=== PATIENT | female | born 1970 | race Two or more races ===

== ENCOUNTER 2025-01-24 03:05 | Emergency (ER) | payer MEDICAID, SELFPAY ==
[2025-01-24 03:08] VITALS: BMI 31.6
[2025-01-24 03:19] VITALS: BP 151/83; PULSE 89; RESP 18; TEMP 36.5; O2SAT 96
[2025-01-24] MEDS: KETOROLAC INJ 60 MG/2 ML VIAL IM (03:33)
--- NOTE | 2025-01-24 03:35 | PD.EDSKIN ---
ED Skin Abcess FB-RME/HPI General Chief complaint: Skin/Abscess/Foreign Body Stated complaint: LESIONS ON ARMS Time Seen by Provider: 01/24/25 03:22 Arrival date/time: 01/24/25 03:05 54F with no significant PMH presents to ED with 3 months of itchy/painful rashes on bilateral arms. Patient has seen client service associate who did biopsy and said it was unspecified dermatitis. Limitations: no limitations Related Data Home Medications ?Medication ?Instructions ?Recorded ?Confirmed lisinopril 20 mg tablet 20 mg PO QDAY #0 tabs 06/14/16 08/09/22 gabapentin 600 mg tablet 1 tab PO TID 01/20/22 08/09/22 hydrocodone 10 mg-acetaminophen 1 tab PO Q6H PRN Pain 08/09/22 08/09/22 325 mg tablet Held on 08/09/22. Instructions: Resume on 08/10/22. Previous Rx's ?Medication ?Instructions ?Recorded pantoprazole 40 mg tablet,delayed 40 mg PO BID #180 tabs 01/20/22 release (Protonix) Allergies Allergy/AdvReac Type Severity Reaction Status Date / Time Latex, Natural Rubber Allergy Severe Rash Verified 08/09/22 08:47 fentanyl Allergy Mild Hypotension Verified 08/09/22 08:47 morphine Allergy Mild itching Verified 08/09/22 08:47 sulfamethoxazole Allergy Mild Rash Verified 08/09/22 08:47 trimethoprim Allergy Mild Rash Verified 08/09/22 08:47 Review of Systems Review of Systems Systems Reviewed: All systems reviewed, normal except as documented Constitutional Constitutional: Reports system reviewed and no additional complaints, except as documented, Denies fever(s) and Denies headache(s) ENT Ears, Nose, Mouth, and Throat: Denies disequilibrium and Denies headache(s) Cardiovascular Cardiovascular: Reports system reviewed and no additional complaints, except as documented, Denies chest pain and Denies dyspnea Respiratory Respiratory: Reports system reviewed and no additional complaints, except as documented, Denies cough and Denies dyspnea Gastrointestinal Gastrointestinal: Reports system reviewed and no additional complaints, except as documented, Denies abdominal pain, Denies nausea and Denies vomiting Integumentary/Breasts Skin/Breast: Reports as per HPI, Reports pruritus, Reports rash and Reports skin pain Neurologic Neurologic: Reports system reviewed and no additional complaints, except as documented, Denies confusion, Denies disequilibrium and Denies headache(s) Psychiatric Psychiatric: Denies confusion Past Medical History Past Medical History NEUROLOGIC: Negative Neurological Disorders or Seizures CARDIAC: Positive Cardiac Disorders, Hypercholesterolemia and Hypertension; Negative Congestive Heart Failure RESPIRATORY: Negative Chronic Obstructive Pulmonary Disease (COPD), Asthma or Sleep Apnea GASTROINTESTINAL: Negative Gastrointestinal Disorders GENITOURINARY: Negative Genitourinary Disorders or Renal Disease MUSCULOSKELETAL: Positive Musculoskeletal Disorders and Arthritis ENDOCRINE: Negative Endocrine Disorders, Diabetes Mellitus Type 1 or Diabetes Mellitus Type 2 HEMATOLOGIC: Negative Blood Disorders PSYCHO/SOCIAL: Negative Depression or Anxiety OTHER HISTORY: Positive Chicken Pox; Negative Autoimmune Disease, Blood Transfusions, Blood Transfusion Reaction or Anesthesia Reactions Surgical History SURGICAL: Positive Abdominal Surgery (gastric sleeve, tummy tuck), Hysterectomy and Section (x3); Negative Cardiac Surgery, Endocrine Surgery, Ear Surgery, Nephrectomy, Joint Replacement or Neurologic Surgery Social History SMOKING STATUS: Never smoker ED Exam General Limitations: Present no limitations General appearance: Present alert and in no apparent distress Head Head exam: Present atraumatic Eye Eye exam: Present normal appearance, PERRL and EOMI ENT ENT exam: Present normal exam, normal oropharynx and mucous membranes moist Neck Neck exam: Present normal inspection, full ROM and trachea midline Chest Chest inspection: Present normal inspection and symmetric chest wall rise Respiratory Respiratory exam: Present normal lung sounds bilaterally Cardiovascular Cardiovascular exam: Present regular rate, normal rhythm and normal heart sounds Abdominal Exam Abdominal exam: Present soft and normal bowel sounds Extremities Exam Extremities exam: Present normal inspection and full ROM Back Exam Back exam: Present normal inspection and full ROM Neurological Exam Neurological exam: Present alert, oriented X3 and CN II-XII intact Psychiatric Psychiatric exam: Present normal affect and normal mood Skin Skin exam: Present warm, dry, intact, normal color and rash Course Quality Measures none Orders Category Date Time Status DiphenhydrAMINE [Benadryl] Med 01/24/25 03:22 Discontinued 50 mg PO X1 ONE Ketorolac Inj [Toradol Inj] Med 01/24/25 03:22 Discontinued 60 mg IM X1 ONE Vital Signs Vital signs: Vital Signs Temperature 97.7 F 01/24/25 03:19 Pulse Rate 89 01/24/25 03:19 Respiratory Rate 18 01/24/25 03:19 Blood Pressure 151/83 H 01/24/25 03:19 Pulse Oximetry (%) 96 01/24/25 03:19 Oxygen Delivery Method Room Air 01/24/25 03:19 O2 at 96% on RA and WNLs Skin / Abscess / Foreign Body MDM Narrative MDM Narrative:: 54F with no significant PMH presents to ED with 3 months of itchy/painful rashes on bilateral arms. Patient has seen client service associate who did biopsy and said it was unspecified dermatitis. Physical exam reveals bilateral healed ulcerations on top of arms. Patient is afebrile, calm, and alert. Unclear etiology. Possibly self-inflicted/scratching from meth. Possible panniculitis. Meds and staff counselor given. Patient data External records reviewed:: [facility] previous records Clinical information provided by:: patient Social determinants that could affect healthcare access:: none Patient has the following chronic illnesses:: none How is presenting disease/condition affected by chronic disease/condition?: no chronic disease Evaluation data The following diagnostics were reviewed and interpreted by me:: other (specify) (none) Lab and/or radiology exams considered but not ordered:: not ordered Interpretation Summary: n/a Medications / Prescriptions Medications or Prescriptions considered but not ordered:: ordered Medication administrations:: Medication Administration History Discontinued Medications Diphenhydramine HCl (Diphenhydramine 25 Mg Capsule) 50 mg PO X1 ONE Stop: 01/24/25 03:23 Last Admin: 01/24/25 03:33 Dose: 50 mg Documented By: HARRY Ketorolac Tromethamine (Ketorolac Inj 60 Mg/2 Ml Vial) 60 mg IM X1 ONE Stop: 01/24/25 03:23 Last Admin: 01/24/25 03:33 Dose: 60 mg Documented By: HARRY above Consultations Consultation(s) initiated? (list below): No Diagnosis Skin/Abscess Differential Diagnosis: abscess of skin or subcutaneous tissue, viral exanthem, dermatophytosis, urticaria, herpes zoster, allergic reaction to drug, cellulitis, eczema, insect bites, impetigo, contact dermatitis and other (skin ulcer) Most likely diagnosis given after review of the tests above:: skin ulcer Admission Indicated Admission indicated?: not indicated Admission Request Was there a request for admission?: No Disposition Plan Disposition Plan: Discharge Discharge Attestation Discharge Attestation: The patient and all family members were given an opportunity to ask questions and understood the discharge instructions. Discharge instructions specifically effects, indications for sooner follow up or return to the emergency department, and the expected course of current diagnosis. Patient condition: Stable Discharge Plan Plan Patient Disposition: HOME (Self Care) Discharge Disposition comment: Stable Prescriptions/Referrals Prescriptions/Med Rec: No Action lisinopril 20 MG tablet 20 mg PO QDAY Qty: 0 gabapentin 600 mg tablet 1 tab PO TID Patient Comments: take 1 tablet by mouth three times a day pantoprazole [Protonix] 40 mg Tablet,Delayed Release (Dr/Ec) 40 mg PO BID Qty: 180 0RF hydrocodone-acetaminophen 10-325 mg Tablet 1 tab PO Q6H PRN (Reason: Pain) Problem List Clinical Impression: Skin ulcer Patient/Caregiver Discharge Instructions Additional Instructions: Please follow-up with PCP within 24-48 hours and return immediately if symptoms worsen. Recommend seeing client service associate at large tertiary center such [facility]. Print Language: Vietnamese Stand Alone Forms: Patient Portal Info Letter POLLO/JAELYN Supervising Physician POLLO/JAELYN Supervising Physician: Dr. Osullivan
== END 2025-01-24 03:43 | disposition home or self-care (01) ==
LOC: SERX 03:42
PROVIDERS: Emergency Provider Emergency Medicine; PCP Physician Assistant
DX: L98.499 Non-pressure chronic ulcer of skin of other sites with unspecified severity (principal); E78.00 Pure hypercholesterolemia, unspecified; I10 Essential (primary) hypertension; Z79.899 Other long term (current) drug therapy; Z88.5 Allergy status to narcotic agent; Z91.040 Latex allergy status
CPT/HCPCS: 96372; 99283; J1885; A9270